=== PATIENT | male | born 1945 | race Caucasian/White ===

== ENCOUNTER 2016-07-05 16:08 | Emergency (ER) | payer MEDICARE, OTHER ==
[2016-07-05 16:35] LABS: URINE MUCUS NONE SEEN (Up to 25%); URINE SQUAMOUS EPITHELIAL CELL NONE SEEN (<= 15/hpf)
[2016-07-05 16:36] LABS: URINE BACTERIA >50 ORGANISMS/hpf (<10/hpf)
--- NOTE | 2016-07-05 17:00 | ER NURSING DOCUMENTATION ---
Nurse's Notes [facility] Name:Mario King Age:71 yrs Sex:Male :1945 Arrival Date:07/05/2016 Time:16:08 Bed3 Private MD: Diagnosis:Bladder Infection (UTI);Acute Prostatitis Presentation: 07/05 16:13 Presenting complaint: Patient states: Blood in urine and pain with urination for 22 rs hours. Transition of care: patient was not received from another setting of care. 16:13 Acuity: TIANA 3 rs 16:13 Method Of Arrival: Private Vehicle rs Triage Assessment: 16:31 General: Appears in no apparent distress, Behavior is cooperative. Pain: Denies pain. st Cardiovascular: No deficits noted. Respiratory: No deficits noted. GI: No deficits noted. : Urine is solomon blood, no pain on palpation of the bladder or genital area. Reports burning with urination pain with urination urgency some times he cant even make it to the restroom. urinary frequency. Historical: - Allergies: No known drug Allergies; - Home Meds: 1. doxazosin oral 2. Hydrochlorothiazide Oral 3. Metoprolol Tartrate Oral 4. Potassium Chloride Oral 5. Furosemide Oral 6. loratadine oral 7. multivitamin with minerals oral 8. Metformin Oral 9. Metoprolol Tartrate Oral 10. Insulin: Lantus Sub-Q 11. Simvastatin Oral 12. levothyroxine oral 13. Folic Acid Oral 14. tamsulosin oral 15. flutocasone 16. ipratroium - PMHx: DIABETES - IDDM; HYPOTENSION; - Tetanus: unknown will f/u with PCP. - Ebola Screening: : Patient denies exposure to infectious person. Patient denies travel to an Ebola-affected area in the 21 days before illness onset. . - Social history: Smoking status: Patient states was never smoker of tobacco. Patient uses alcohol occasionally. Patient/guardian denies using marijuana. Screenin:32 Infectious Disease Risk None. Abuse screen: Denies threats or abuse. Denies injuries st from another. pt feels safe at home. Nutritional screening: No deficits noted. Vital Signs: 16:16 BP 189 / 88; Pulse 88; Resp 16; Temp 98.7(O); Pulse Ox 91% on R/A; Weight 124.74 kg; arc Height 6 ft. 2 in. (187.96 cm) (R); 16:16 Body Mass Index 35.31 (124.74 kg, 187.96 cm) arc ED Course: 16:09 Patient arrived in ED. lm3 16:13 Triage completed. rs 16:18 Kelly Menendez, RN is Primary Nurse. st 16:26 Urine collected. Voided Bladder Scan performed. Volume in cc: [address] 16:27 Keenan Etienne MD is Attending Physician. ok 16:33 Valuables Remains with patient Patient has correct armband on for positive st identification. Placed in gown. Bed in low position. Warm blanket given. Administered Medications: No medications were administered Outcome: 16:50 Discharge ordered by . ok 16:57 Discharged to home ambulatory. st 16:57 Condition: stable 16:57 Instructed on discharge instructions, follow up and referral plans. medication usage, Prescriptions given X 1. 16:59 Patient [address] the ED[address] st Signatures: Kelly Menendez RN RN st Stalker, Rachael, RN RN rs Chew, Scott, MD MD ok Supriya Etienne, Reg Reg arc Concepcion Dumont lm3
--- NOTE | 2016-07-05 17:00 | ER PHYSICIAN DOCUMENTATION ---
Physician Documentation [facility] Name:Mario King Age:71 yrs Sex:Male :1945 Arrival Date:07/05/2016 Time:16:08 Bed3 Private MD: Keenan Cheng Disposition: 07/05/16 16:50 Discharged to Home/Self Care. Impression: Bladder Infection (UTI), Acute Prostatitis. - Condition is Good. - Discharge Instructions: BLADDER INFECTION, Male (Adult), PROSTATITIS. - Prescriptions for Cipro 500 mg Oral Tablet - take 1 tablet by ORAL route every 12 hours for 10 days; 20 tablet. - Medical Reconciliation form form. - Follow up: Emergency Department; When: As needed; Reason: Worsening of condition. - Problem is new. - Symptoms are unchanged. HPI: 07/05 16:47 This 71 yrs old Male presents to ER via Private Vehicle with complaints of sc Urinary Problem - blood. 16:47 The patient presents with urinary symptoms, dysuria, urinary frequency. Onset: The sc symptom(s)/episode began/occurred suddenly, yesterday, and became worse today. Associated signs and symptoms: Pertinent positives: hematuria, Pertinent negatives: abdominal pain, fever. Severity of symptoms: At their worst the symptoms were moderate. The patient has not experienced similar symptoms in the past. Historical: - Allergies: No known drug Allergies; - Home Meds: 1. doxazosin oral 2. Hydrochlorothiazide Oral 3. Metoprolol Tartrate Oral 4. Potassium Chloride Oral 5. Furosemide Oral 6. loratadine oral 7. multivitamin with minerals oral 8. Metformin Oral 9. Metoprolol Tartrate Oral 10. Insulin: Lantus Sub-Q 11. Simvastatin Oral 12. levothyroxine oral 13. Folic Acid Oral 14. tamsulosin oral 15. flutocasone 16. ipratroium - PMHx: DIABETES - IDDM; HYPOTENSION; - Tetanus: unknown will f/u with PCP. - Ebola Screening: : Patient denies exposure to infectious person. Patient denies travel to an Ebola-affected area in the 21 days before illness onset. . - Social history: Smoking status: Patient states was never smoker of tobacco. Patient uses alcohol occasionally. Patient/guardian denies using marijuana. ROS: 16:48 Constitutional: Negative for fever, chills, and weight loss. sc Eyes: Negative for injury, pain, redness, and discharge. ENT: Negative for injury, pain, and discharge. Cardiovascular: Negative for chest pain, palpitations, and edema. Respiratory: Negative for shortness of breath, cough, wheezing, and pleuritic chest pain. Abdomen/GI: Negative for abdominal pain, nausea, vomiting, diarrhea, and constipation. Back: Negative for injury and pain. Skin: Negative for injury, rash, and discoloration. 16:48 Neuro: Negative for headache, weakness, numbness, tingling, and seizure. sc 16:48 : Positive for urinary symptoms, hematuria, burning with urination. Exam: Constitutional: This is a well developed, well nourished patient who is awake, alert, and in no acute distress. Head/Face: Normocephalic, atraumatic. Eyes: Pupils equal round and reactive to light, extra-ocular motions intact. Lids and lashes normal. Conjunctiva and sclera are non-icteric and not injected. Cornea within normal limits. Periorbital areas with no swelling, redness, or edema. Chest/axilla: Normal chest wall appearance and motion. Nontender with no deformity. No lesions are appreciated. Cardiovascular: Regular rate and rhythm with a normal S1 and S2. No gallops, murmurs, or rubs. Normal PMI, no JVD. No pulse deficits. Respiratory: Lungs have equal breath sounds bilaterally, clear to auscultation and percussion. No rales, rhonchi or wheezes noted. No increased work of breathing, no retractions or nasal flaring. Abdomen/GI: Soft, non-tender, with normal bowel sounds. No distension or tympany. No guarding or rebound. No evidence of tenderness throughout. 16:49 Skin: Warm, dry with normal turgor. Normal color with no rashes, no lesions, and no sc evidence of cellulitis. 16:49 : CVA tenderness, is absent, Bladder: tenderness, that is mild. Vital Signs: 16:16 BP 189 / 88; Pulse 88; Resp 16; Temp 98.7(O); Pulse Ox 91% on R/A; Weight 124.74 kg; arc Height 6 ft. 2 in. (187.96 cm) (R); 16:16 Body Mass Index 35.31 (124.74 kg, 187.96 cm) arc MDM: 16:36 Patient medically screened. wy 16:49 Differential diagnosis: UTI, prostatitis, urethritis. Data reviewed: vital signs, wy nurses notes, lab test result(s), and as a result, I will discharge patient, administer antibiotics. Counseling: I had a detailed discussion with the patient and/or guardian regarding: the historical points, exam findings, and any diagnostic results supporting the discharge/admit diagnosis, lab results, the need for outpatient follow up, for a recheck, with the patient's primary care provider. 07/05 16:37 Order name: URINE MICROSCOPIC; Complete Time: 16:40 EDDE 07/05 16:40 Interpretation: Abnormal: URINE RBC >100/hpf; URINE WBC 5-10/hpf; URINE BACTERIA >50 sc ORGANISMS/hpf. 07/06 06:15 Order name: URINE CULTURE EDDE 07/05 16:18 Order name: Bladder Scan; Complete Time: 16:26 rs Dispensed Medications: No medications were administered Signatures: Kelly Menendez RN RN st Stalker, Rachael, RN RN rs Chew, Scott, MD MD wy
== END 2016-07-05 17:00 | disposition home or self-care (01) ==
LOC: ER 16:08
DX: N39.0 Urinary tract infection, site not specified (principal); N41.0 Acute prostatitis; B96.89 Other specified bacterial agents as the cause of diseases classified elsewhere; E11.9 Type 2 diabetes mellitus without complications; Z79.899 Other long term (current) drug therapy; Z79.4 Long term (current) use of insulin
CPT/HCPCS: 81015; 87086; 99283